=== PATIENT | male | born 1990 | race Caucasian/White ===

== ENCOUNTER 2023-01-10 12:45 | Outpatient (CLI) | payer MEDICAID | END 2023-01-10 12:46 | disposition short-term general hospital (02) | LOC: EMS 12:45 | DX: S99.911A Unspecified injury of right ankle, initial encounter (principal); M25.551 Pain in right hip; M54.50 Low back pain, unspecified; W17.89XA Other fall from one level to another, initial encounter; Y93.H3 Activity, building and construction; Y92.61 Building [any] under construction as the place of occurrence of the external cause | CPT/HCPCS: A0425; A0427; A0999 ==